=== PATIENT | female | born 1970 | race Caucasian/White ===

== ENCOUNTER 2024-05-16 15:10 | Outpatient (CLI) | payer BC | END 2024-05-16 15:11 | disposition home or self-care (01) | LOC: CSHMAMMO 15:10 | PROVIDERS: ATTEND Internal Medicine Rheumatology | DX: M81.0 Age-related osteoporosis without current pathological fracture (principal) | CPT/HCPCS: 77080 ==

== ENCOUNTER 2024-05-16 16:05 | Outpatient (CLI) | payer BC | END 2024-05-16 16:06 | disposition home or self-care (01) | LOC: CSHRAD 16:05 | PROVIDERS: ATTEND Internal Medicine Rheumatology | DX: M17.0 Bilateral primary osteoarthritis of knee (principal); M81.0 Age-related osteoporosis without current pathological fracture; M23.41 Loose body in knee, right knee ==

== ENCOUNTER 2024-06-08 09:30 | Outpatient (CLI) | payer BC | END 2024-06-08 10:30 | disposition home or self-care (01) | LOC: CSHRAD 09:30 | PROVIDERS: ATTEND Internal Medicine Rheumatology | DX: M46.1 Sacroiliitis, not elsewhere classified (principal) | CPT/HCPCS: 72202 ==

== ENCOUNTER 2025-08-22 12:14 | Outpatient (CLI) | payer BC | END 2025-08-22 12:15 | disposition home or self-care (01) | LOC: CSHRAD 12:14 | PROVIDERS: ATTEND Student in an Organized Health Care Education/Training Program | DX: M25.572 Pain in left ankle and joints of left foot (principal) ==